=== PATIENT | male | born 1980 | race Caucasian/White ===

== ENCOUNTER → 2020-09-20 | Outpatient (CLI) | payer BC ==
[2020-09-20 12:53] LABS: HEMOGLOBIN 15.6 gm/dl (14.0-17.5); RED BLOOD COUNT 5.66 M/UL (4.20-5.50); WHITE BLOOD COUNT 5.7 K/UL (4.5-11.0)
[2020-09-20 17:30] LABS: BUN/CREATININE RATIO 13 (0-10)
[2020-09-21 11:12] LABS: PROLACTIN 13.4 ng/mL (4.0-15.2)
[2020-09-26 00:09] LABS: TESTOSTERONE, SERUM 327 ng/dL (264-916)
== END ==
LOC: LAB 12:18
PROVIDERS: Family Medicine
DX: F52.21 Male erectile disorder (principal); E66.9 Obesity, unspecified
CPT/HCPCS: 36415; 80053; 80061; 84146; 84402; 84403; 84443; 85027